=== PATIENT | female | born 1960 | race Caucasian/White ===

== ENCOUNTER → 2025-01-09 10:42 | Outpatient (REF) | payer MEDICARE, SELFPAY | LOC: HWWDC 10:42 | PROVIDERS: ATTENDING PHYSICIAN Family Medicine; REFERRING PHYSICIAN Dentist Oral and Maxillofacial Pathology | DX: Z12.31 Encounter for screening mammogram for malignant neoplasm of breast (principal) | CPT/HCPCS: 77063; 77067 ==